=== PATIENT | female | born 1955 | race Caucasian/White ===

== ENCOUNTER 2016-08-28 16:07 | Emergency (ER) | payer OTHER ==
[2016-08-28 18:32] LABS: HEMOGLOBIN 12.9 gm/dl (12.3-15.3); RED BLOOD COUNT 4.16 M/UL (4.00-5.10); WHITE BLOOD COUNT 6.2 K/UL (4.5-11.0)
[2016-08-28 19:10] LABS: BUN/CREATININE RATIO 40 (0-10)
[2016-10-09] MEDS ORDERED: OMEPRAZOLE20 M1 PO (10:05)
[2016-10-09] MEDS ORDERED: EXCEDRIN EXTRA1 EACH PO (10:06)
== END 2016-08-28 20:40 | disposition home or self-care (01) ==
LOC: ER1 16:07
PROVIDERS: Family Medicine
DX: M54.6 Pain in thoracic spine (principal); G89.29 Other chronic pain; R07.9 Chest pain, unspecified; Z88.8 Allergy status to other drugs, medicaments and biological substances
CPT/HCPCS: 36415; 71020; 80053; 82550; 82553; 83874; 84484; 85025; 93005; 99284

== ENCOUNTER 2016-08-30 16:24 | Emergency (ER) | payer OTHER ==
[2016-08-30 18:14] LABS: HEMOGLOBIN 13.4 gm/dl (12.3-15.3); RED BLOOD COUNT 4.33 M/UL (4.00-5.10); WHITE BLOOD COUNT 6.9 K/UL (4.5-11.0)
[2016-08-30 18:39] LABS: BUN/CREATININE RATIO 37 (0-10)
[2016-10-09] MEDS ORDERED: OMEPRAZOLE20 M1 PO (10:05)
[2016-10-09] MEDS ORDERED: EXCEDRIN EXTRA1 EACH PO (10:06)
== END 2016-08-30 23:52 | disposition home or self-care (01) ==
LOC: ER1 16:24
PROVIDERS: Student in an Organized Health Care Education/Training Program
DX: R55 Syncope and collapse (principal); R79.89 Other specified abnormal findings of blood chemistry; J44.9 Chronic obstructive pulmonary disease, unspecified; G43.909 Migraine, unspecified, not intractable, without status migrainosus; E78.00 Pure hypercholesterolemia, unspecified; Z88.8 Allergy status to other drugs, medicaments and biological substances; Z86.73 Personal history of transient ischemic attack (TIA), and cerebral infarction without residual deficits
CPT/HCPCS: 36415; 71010; 72131; 80053; 82550; 82553; 83605; 83690; 83874; 84484; 85025; 93005; 96374; 96375; 96376; 99285; C9113; J1885; J2270; J2405; J2550; J7030

== ENCOUNTER → 2016-09-10 | Outpatient (CLI) | payer OTHER ==
[~2016-09-10] MED LIST: EXCEDRIN EXTRA1 EACH PO; OMEPRAZOLE20 M1 PO
== END ==
LOC: RAD 11:45
DX: M54.9 Dorsalgia, unspecified (principal)
CPT/HCPCS: 72072

== ENCOUNTER → 2016-10-09 | Day surgery (SDC) | payer OTHER ==
[~2016-10-09] VITALS: Ht 162.6 cm; Wt 57.6 kg
== END | disposition home or self-care (01) ==
LOC: OR 08:52
PROVIDERS: Internal Medicine Gastroenterology
PROC: 0DJD8ZZ Inspection of Lower Intestinal Tract, Via Natural or Artificial Opening Endoscopic (ICD-10-PCS; principal; 2016-10-09 17:45)
DX: Z12.11 Encounter for screening for malignant neoplasm of colon (principal); K64.0 First degree hemorrhoids; I10 Essential (primary) hypertension; E78.5 Hyperlipidemia, unspecified; K29.70 Gastritis, unspecified, without bleeding; M19.90 Unspecified osteoarthritis, unspecified site; F17.290 Nicotine dependence, other tobacco product, uncomplicated; Z88.8 Allergy status to other drugs, medicaments and biological substances; Z79.899 Other long term (current) drug therapy; Z87.19 Personal history of other diseases of the digestive system; Z90.49 Acquired absence of other specified parts of digestive tract
CPT/HCPCS: J7030

== ENCOUNTER → 2016-11-06 | Outpatient (CLI) | payer OTHER | LOC: KOH-I 14:37 | DX: M54.16 Radiculopathy, lumbar region (principal); M51.26 Other intervertebral disc displacement, lumbar region | CPT/HCPCS: 72148 ==

== ENCOUNTER → 2016-11-13 | Outpatient (CLI) | payer OTHER | LOC: EMI 11:18 | DX: M54.9 Dorsalgia, unspecified (principal) | CPT/HCPCS: 72146 ==

== ENCOUNTER → 2016-11-16 | Outpatient (CLI) | payer OTHER | LOC: MAMO 09-20 15:40 | DX: Z12.31 Encounter for screening mammogram for malignant neoplasm of breast (principal) | CPT/HCPCS: G0202 ==

== ENCOUNTER 2020-09-30 08:15 | Emergency (ER) | payer OTHER ==
[~2020-09-30 08:15] MED LIST changes: +AUGMENTIN 875-1 EACH PO; +CRESTOR 10 MG T10 MG PO; +FLONASE 0.05% N16 GM; +HYDROCORTISONE 1% TOP; +LORTAB 5-325 M1 EACH PO; +NORCO 5-325 TA1 EACH PO; +ONDANSETRON ODT4 MG SL; +PHENERGAN 12.12.5 M1 PO; +PHENERGAN 25 MG25 M1 PO; +PHENERGAN25 MG PR; +PREDNISONE 50 M50 MG PO; +PREDNISONE20 MG PO; +RESTORIL30 MG PO; +TESSALON PERLE100 MG PO; +VIBRAMYCIN100 MG PO
[2020-09-30 08:52] LABS: HEMOGLOBIN 13.5 gm/dl (12.3-15.3); RED BLOOD COUNT 4.44 M/UL (4.00-5.10)
[2020-09-30 09:16] LABS: BUN/CREATININE RATIO 25 (0-10)
== END 2020-09-30 13:10 | disposition home or self-care (01) ==
LOC: ER1 08:15
PROVIDERS: Physician Assistant
DX: K31.84 Gastroparesis (principal); Z90.49 Acquired absence of other specified parts of digestive tract; Z90.89 Acquired absence of other organs; Z88.8 Allergy status to other drugs, medicaments and biological substances
CPT/HCPCS: 80053; 81001; 83690; 85025; 96374; 96375; 99284; J2270; J2550; J7030

== ENCOUNTER → 2020-11-15 | Outpatient (CLI) | payer OTHER | LOC: KOH-I 12:27 | DX: R10.32 Left lower quadrant pain (principal) | CPT/HCPCS: 74018 ==

== ENCOUNTER 2022-01-06 08:53 | Emergency (ER) | payer OTHER ==
[2022-01-06 09:41] LABS: HEMOGLOBIN 13.3 gm/dl (12.3-15.3); RED BLOOD COUNT 4.4 M/UL (4.00-5.10); WHITE BLOOD COUNT 5.4 K/UL (4.5-11.0)
[2022-01-06 10:06] LABS: BUN/CREATININE RATIO 23 (0-10)
[2022-01-06] MEDS ORDERED: TAMIFLU75 MG PO (10:39)
== END 2022-01-06 11:50 | disposition home or self-care (01) ==
LOC: ER1 08:53
PROVIDERS: Physician Assistant
DX: J10.1 Influenza due to other identified influenza virus with other respiratory manifestations (principal); Z95.0 Presence of cardiac pacemaker; J45.909 Unspecified asthma, uncomplicated; I11.9 Hypertensive heart disease without heart failure; Z88.8 Allergy status to other drugs, medicaments and biological substances; Z20.822 Contact with and (suspected) exposure to COVID-19
CPT/HCPCS: 0240U; 71045; 80053; 81001; 82550; 82553; 83605; 84484; 85025; 93005; 96374; 99284; J1885

== ENCOUNTER → 2022-01-17 | Outpatient (CLI) | payer OTHER ==
[~2022-01-17] MED LIST changes: +TAMIFLU75 MG PO
[2022-01-17 08:13] LABS: HEMOGLOBIN 12.7 gm/dl (12.3-15.3); RED BLOOD COUNT 4.28 M/UL (4.00-5.10); WHITE BLOOD COUNT 10.4 K/UL (4.5-11.0)
[2022-01-17 08:34] LABS: BUN/CREATININE RATIO 41 (0-10)
== END ==
LOC: LAB 07:42
PROVIDERS: Family Medicine
DX: E78.5 Hyperlipidemia, unspecified (principal); I10 Essential (primary) hypertension; J20.9 Acute bronchitis, unspecified; J45.901 Unspecified asthma with (acute) exacerbation; R91.8 Other nonspecific abnormal finding of lung field
CPT/HCPCS: 36415; 71046; 80053; 80061; 84443; 85027